=== PATIENT | male | born 2000 | race Caucasian/White ===

== ENCOUNTER 2021-03-27 18:59 | Emergency (ER) | payer BC ==
[2021-03-27 20:44] LABS: HEMOGLOBIN 15.9 gm/dl (14.0-17.5); RED BLOOD COUNT 5.56 M/UL (4.20-5.50); WHITE BLOOD COUNT 8.1 K/UL (4.5-11.0)
[2021-03-27 21:04] LABS: BUN/CREATININE RATIO 13 (0-10)
[2021-03-27] MEDS ORDERED: MOBIC15 MG PO (22:35)
== END 2021-03-27 22:42 | disposition home or self-care (01) ==
LOC: ER1 18:59
PROVIDERS: Physician Assistant
DX: R10.31 Right lower quadrant pain (principal); Q63.8 Other specified congenital malformations of kidney
CPT/HCPCS: 80053; 81001; 83690; 85025; 99284; Q9967

== ENCOUNTER → 2021-06-12 | Outpatient (CLI) | payer BC, OTHER ==
[~2021-06-12] MED LIST: MOBIC15 MG PO
== END ==
LOC: HEART CORB 06-08 08:30
DX: R93.1 Abnormal findings on diagnostic imaging of heart and coronary circulation (principal); I51.7 Cardiomegaly